=== PATIENT | female | born 1990 | race Caucasian/White ===

== ENCOUNTER 2017-06-07 11:55 | Emergency (ER) | payer OTHER ==
[~2017-06-07] VITALS: Ht 170.2 cm; Wt 86.2 kg
[2017-06-07 12:09] VITALS: BP 111/68
--- NOTE | 2017-06-07 12:21 | NUR ---
PATIENT TO BED 3 AT THIS TIME.
--- NOTE | 2017-06-07 12:22 | NUR ---
27F BIB FAMILY C/O INTERMITTENT FEVER, NON-PRODUCTIVE COUGH AND CONGESTION X 3 DAYS; PT C/O SHARP, SORE THROAT/NECK PAIN, RADIATES TO BL EARS, 8/10 AT THIS TIME; BL LUNG SOUNDS CLEAR, RR EVEN/UNLABORED, PT SPEAKING IN FULL, CLEAR SENTENCES AT THIS TIME; PT AA&OX4, PERRLA, STATES NO N/V/D AT THIS TIME; SKIN IS WARM/DRY/INTACT; STEADY GAIT; PT RESTING IN BED WITH HOB ELEVATED AND IN LOWEST POSITION; POSITIONED FOR COMFORT; ER MD MADE AWARE OF STATUS. WILL CONTINUE TO MONITOR.
--- NOTE | 2017-06-07 12:58 | NUR ---
ER MD DR. GUNN EVALUATING PT AT BEDSIDE.
[2017-06-07 13:10] VITALS: BP 109/73
--- NOTE | 2017-06-07 13:10 | NUR ---
Patient discharged with v/s stable. Written and verbal after care instructions given and explained. Patient alert, oriented and verbalized understanding of instructions. Ambulatory with steady gait. All questions addressed prior to discharge. ID band removed. Patient advised to follow up with PMD. Rx of NAPROSYN 375MG TAB & DEXTROMETHORPHAN HYDROBROIDE/PROMETHAZINE HYDROCHLORIDE given. Patient educated on indication of medication including possible reaction and side effects. Opportunity to ask questions provided and answered.
== END 2017-06-07 13:10 | disposition home or self-care (01) ==
LOC: MED 11:55
DX: B34.9 Viral infection, unspecified (principal); Z88.8 Allergy status to other drugs, medicaments and biological substances
CPT/HCPCS: 99283

== ENCOUNTER 2017-09-23 16:00 | Emergency (ER) | payer OTHER ==
[~2017-09-23] VITALS: Ht 170.2 cm; Wt 89.4 kg
[2017-09-23 16:16] VITALS: BP 116/80
--- NOTE | 2017-09-23 16:22 | NUR ---
pt to lobby awaiting avaiable bed. gcs=15. rr are even and unlabored. vss. no acute distress at this time.
--- NOTE | 2017-09-23 17:12 | NUR ---
PATIENT WALKED TO BED 10
--- NOTE | 2017-09-23 17:13 | NUR ---
27/f bib with c/o labia of vagina pain with swelling x 2 days. denies vag discharge or odor. DENIES N/V/D. AAOX4 WITH EVEN AND STEADY GAIT; LUNGS CLEAR BL. PATIENT STATES PAIN OF 5/10 AT THIS TIME. PATIENT POSITIONED FOR COMFORT; HOB ELEVATED; BEDRAILS UP X2; BED DOWN. ER MD MADE AWARE OF PT STATUS.
--- NOTE | 2017-09-23 17:50 | NUR ---
Patient being evaluated by DR GUNN at bedside.
[2017-09-23 17:57] VITALS: BP 116/80
--- NOTE | 2017-09-23 17:57 | NUR ---
Patient discharged with v/s stable. Written and verbal after care instructions given and explained. Patient alert, oriented and verbalized understanding of instructions. Ambulatory with steady gait. All questions addressed prior to discharge. ID band removed. Patient advised to follow up with PMD. Rx of CLARITIN given. Patient educated on indication of medication including possible reaction and side effects. Opportunity to ask questions provided and answered.
== END 2017-09-23 17:57 | disposition home or self-care (01) ==
LOC: MED 16:00
DX: R60.9 Edema, unspecified (principal); R10.2 Pelvic and perineal pain; Z88.6 Allergy status to analgesic agent; Z98.890 Other specified postprocedural states
CPT/HCPCS: 81002; 81025; 99282